=== PATIENT | male | born 1955 | race American Indian/Alaskan Native ===

== ENCOUNTER 2020-09-03 08:33 | Outpatient (CLI) | payer OTHER, MEDICARE ==
--- NOTE | 2020-09-03 09:42 | Ultrasound Report ---
ULTRASOUND SOFT TISSUE HEAD AND NECK HISTORY: Benign lipomatous neoplasm TECHNIQUE: Grayscale ultrasound with color Doppler imaging COMPARISON: None. FINDINGS: Targeted ultrasound in the left posterior neck was performed which demonstrates a fat echog enicity lesion measuring 2.3 x 1.2 x 1.2 cm. No internal complexity is appreciated. No adenopathy or fluid collection. IMPRESSION: Lipoma. Signer Name: Rony Hinkle Jr, MD Signed: 09/03/2020 9:37 AM Workstation Name: [id number]
== END 2020-09-03 08:34 | disposition home or self-care (01) ==
LOC: US 08:33
PROVIDERS: ATTEND Family Medicine
DX: D17.0 Benign lipomatous neoplasm of skin and subcutaneous tissue of head, face and neck (principal)
CPT/HCPCS: 76536